=== PATIENT | female | born 1985 | race Caucasian/White ===

== ENCOUNTER 2017-02-22 15:21 | Emergency (ER) | payer OTHER ==
[~2017-02-22] VITALS: Ht 162.6 cm; Wt 65.8 kg
[~2017-02-22 15:21] MED LIST: ATENOLOL25 GM; BACTRIM DS TABL1 TAB PO; CLONAZEPAM1 GM; CODE1TAB37 PO; IBUPROFEN800 MG PO; IRON1TAB4 PO; ZANTAC300 MG PO
== END 2017-02-22 21:31 | disposition home or self-care (01) ==
LOC: ER 15:21
DX: R10.2 Pelvic and perineal pain (principal); Z33.1 Pregnant state, incidental